=== PATIENT | female | born 1990 | race Caucasian/White ===

== ENCOUNTER 2021-05-15 08:48 | Inpatient (IN) | payer OTHER ==
[~2021-05-15] VITALS: Ht 177.8 cm; Wt 89.4 kg
--- NOTE | 2021-05-17 10:52 | NUR ---
CONNECTED WITH PT AND HERBERT. PT WALKING IN RM-JUST WAITING. BOTH IN GOOD SPIRITS, HAD PRAYER, WILL FOLLOW
--- NOTE | 2021-05-17 18:50 | PR ---
[facility] [address] [facility] [place], [place] [address] Signed Progress Notes IP Datetime Report Generated by CPN: 05/17/2021 18:50 PROGRESS NOTES: [id number] Impression: Reassuring Heart Rate Plan: Continue Present Management VITAL SIGNS: [id number] Vital Signs: Reviewed; Within Normal Limits EXAM: [id number] Dilatation: 1.5 Effacement: 80 Station: -1 Contractions: irregular MEMBRANES: [id number] Membranes Status: Intact Comments: IOL for post-EDC, 41 2/7 weeks gestation -s/p cytotec x 3 -now madie too frequently for additional cytotec and rating contraction pain 08/13 Plan: recheck in 2 hrs, anticipate AROM at that time FETUS A: [id number] FHR Baseline: 130 Variability: Moderate 6-25bpm Accelerations: 15X15 Decelerations: None FHR Category: Category I Presentation: Vertex Comments on Fetus A: No evidence of acidemia FETUS B: [id number] Signing Physician: Cecily Hoff DO Copies: ~ *Electronically Signed* 05/17/21 448 CECILY HOFF DO PATIENT NAME: RADHA HAND PROGRESS NOTE DATE OF : [birth year] PHYSICIAN: CECILY HOFF DO RPT #: [id number] REPORT IS CONFIDENTIAL AND NOT TO BE RELEASED WITHOUT AUTHORIZATION
--- NOTE | 2021-05-17 21:21 | PR ---
[facility] [address] [facility] [place], [place] [address] Signed Progress Notes IP Datetime Report Generated by CPN: 05/17/2021 21:21 PROGRESS NOTES: [id number] Impression: Reassuring Heart Rate Procedures: Artificial ROM Plan: Continue Present Management VITAL SIGNS: [id number] Vital Signs: Reviewed; Within Normal Limits EXAM: [id number] Dilatation: 1.5 Effacement: 90 Station: -1 Contractions: irregular MEMBRANES: [id number] Membranes Status: Intact ROM Note: Dr Ronnie RODRIGUEZ pt agreeable. Comments: @ 41 2/7 weeks gestation -s/p cytotec x 3 -contractions increasing in strength -AROM as noted, recommend position changes as tolerated for suspected OP positioning FETUS A: [id number] FHR Baseline: 130 Variability: Moderate 6-25bpm Accelerations: 15X15 Decelerations: None FHR Category: Category I Presentation: Vertex Comments on Fetus A: No evidence of acidemia FETUS B: [id number] Signing Physician: Cecily Hoff DO Copies: ~ *Electronically Signed* 05/17/212120 CECILY HOFF DO PATIENT NAME: RADHA HAND PROGRESS NOTE DATE OF : [birth year] PHYSICIAN: CECILY HOFF DO RPT #: [id number] REPORT IS CONFIDENTIAL AND NOT TO BE RELEASED WITHOUT AUTHORIZATION
--- NOTE | 2021-05-19 10:30 | PR ---
[facility] [address] [facility] [place], [place] [address] Signed PP Progress Notes Datetime Report Generated by NEENA: 05/19/2021 10:30 SUBJECTIVE: [id number] Pain: Within Normal Limits Nausea/Vomiting: Denies Flatus: Yes Vital Signs: [id number] Vital Signs: Reviewed; Within Normal Limits EXAM: Ongoing Cardiovascular: Normal Respiratory: Normal Abdomen/Uterus: Normal Lochia: Normal Extremities: Normal Progress: Normal Exam Comments: NAD, resting on right side in bed RRR No dyspnea/retractions abd SNTND, FFBU Ext: trace edema, Neg Roscoe's BL IMPRESSION/PLAN/PROCEDURES: [id number] Impression: Normal Progression Plan: Continue Present Management; Discharge Progress Notes: PPD#1 s/p IOL for post-EDC -progressing well postop -ambulating, voiding, tolerating regular diet, + flatus -planning condoms for contraception Anemia -hgb 11.4 on admission, 10.1 PPD#1 -ok to continue oral iron, not mandatory COVID19 in - mild symptoms in April, asymptomatic at this time Signing Physician: Cecily Hoff DO Copies: *Electronically Signed* 05/19/21 1030 CECILY HOFF DO PATIENT NAME: RADHA HAND PROGRESS NOTE DATE OF : 91 PHYSICIAN: CECILY HOFF DO RPT #: [id number] REPORT IS CONFIDENTIAL AND NOT TO BE RELEASED WITHOUT AUTHORIZATION [facility] [address] [place] [address], [place] [address] Signed ~ *Electronically Signed* 05/19/21 1030 CECILY HOFF DO PATIENT NAME: RADHA HAND PROGRESS NOTE DATE OF : 91 PHYSICIAN: CECILY HOFF DO RPT #: [id number] REPORT IS CONFIDENTIAL AND NOT TO BE RELEASED WITHOUT AUTHORIZATION
== END 2021-05-19 11:20 | disposition home or self-care (01) | DRG 807 ==
LOC: FBC 05-17 06:10
PROVIDERS: ADMIT Obstetrics & Gynecology; ATTEND Obstetrics & Gynecology
PROC: 10E0XZZ Delivery of Products of Conception, External Approach (ICD-10-PCS; principal; 2021-05-17)
PROC: 0KQM0ZZ Repair Perineum Muscle, Open Approach (ICD-10-PCS; 2021-05-17)
PROC: 3E0P7VZ Introduction of Hormone into Female Reproductive, Via Natural or Artificial Opening (ICD-10-PCS; 2021-05-17)
PROC: 10907ZC Drainage of Amniotic Fluid, Therapeutic from Products of Conception, Via Natural or Artificial Opening (ICD-10-PCS; 2021-05-17)
PROC: 3E0R3BZ Introduction of Anesthetic Agent into Spinal Canal, Percutaneous Approach (ICD-10-PCS; 2021-05-17)
PROC: 00HU33Z Insertion of Infusion Device into Spinal Canal, Percutaneous Approach (ICD-10-PCS; 2021-05-17)
DX: O99.02 Anemia complicating childbirth (principal); Z37.0 Single live birth; D64.9 Anemia, unspecified; Z3A.41 41 weeks gestation of pregnancy; O70.1 Second degree perineal laceration during delivery; Z86.16 Personal history of COVID-19; Z79.899 Other long term (current) drug therapy; Z91.018 Allergy to other foods
CPT/HCPCS: 01960; 36415; 85027; 86850; 86900; 86901; A9270; J2590; J2795; J3010

== ENCOUNTER 2024-02-29 00:02 | Inpatient (IN) | payer BC ==
[~2024-02-29] VITALS: Ht 175.3 cm; Wt 96.2 kg
[~2024-02-29 00:02] MED LIST: CALCIUM CARBONATE 500 MG CHEW PO PRN; LACTATED RINGER'S 1,000 ML IV SCH; MAGNESIUM HYDROXIDE/AL HYDROX 30 ML CUP PO PRN; miSOPROStoL 25 MCG TAB PV SCH
[2024-02-29] MEDS ORDERED: OXYTOCIN/DEXTROSE 5% 20 UNITS/100 ML BAG IV SCH (00:45)
[2024-02-29 00:55] LABS: HEMATOCRIT 31.3 % (35.0-50.0); HEMOGLOBIN 10.8 g/dL (12.0-18.0); MCH 28.3 (27-36); MCHC 34.3 g/dl (30-36); MCV 82.3 fl (81-99); RBC 3.81 M/ul (4.3-5.7); RDW 13.3 (10.5-15.0)
[2024-02-29 01:24] LABS: AMPHETAMINES, URINE NEGATIVE (NEGATIVE); BARBITURATES, URINE NEGATIVE (NEGATIVE); BENZODIAZEPINE, URINE NEGATIVE (NEGATIVE); BUPRENORPHINE, URINE NEGATIVE (NEGATIVE); COCAINE, URINE NEGATIVE (NEGATIVE); ECSTASY, URINE NEGATIVE (NEGATIVE); FENTANYL, URINE NEGATIVE (NEGATIVE); METHADONE, URINE NEGATIVE (NEGATIVE); OPIATES, URINE NEGATIVE (NEGATIVE); OXYCODONE, URINE NEGATIVE (NEGATIVE); PHENCYCLIDINE, URINE NEGATIVE (NEGATIVE)
[2024-02-29 01:30] LABS: ABO B; ANTIBODY SCREEN NEGATIVE; RH POSITIVE
[2024-02-29 01:45] LABS: CANNABINOID, URINE NEGATIVE (NEGATIVE)
[2024-02-29] MEDS ORDERED: fentaNYL citrate 100 MCG/2 ML VIAL ONE (15:27)
[2024-02-29] MEDS ORDERED: LACTATED RINGER'S 500 ML IV PRN (15:30)
[2024-02-29] MEDS ORDERED: ROPIVACAINE 0.2% 200 ML BAG EPIDURAL SCH (15:30)
[2024-02-29] MEDS ORDERED: ePHEDrine sulfate 5 MG/ML SYRINGE IV PRN (15:30)
[2024-02-29] MEDS ORDERED: LACTATED RINGER'S 2,000 ML IV ONE (15:30)
[2024-02-29] MEDS ORDERED: ePHEDrine KIT FOR FBC IV ONE (17:11)
[2024-02-29] MEDS ORDERED: TRANEXAMIC ACID IN NACL,ISO-OS 0 ML IV ONE (18:28)
[2024-02-29] MEDS ORDERED: OXYTOCIN/0.9 % SODIUM CHLORIDE 500 ML IV ONE (18:31)
[2024-02-29] MEDS ORDERED: METHYLERGONOVINE MALEATE 0.2 MG/ML AMP IM ONE (18:45)
[2024-02-29] MEDS ORDERED: OXYTOCIN/0.9 % SODIUM CHLORIDE 500 ML IV SCH ×2 (18:45→21:30)
[2024-02-29] MEDS ORDERED: BENZOCAINE 60 ML AEROSOL TOP PRN (21:30)
[2024-02-29] MEDS ORDERED: ACETAMINOPHEN 325 MG TAB PO PRN (21:30)
[2024-02-29] MEDS ORDERED: HYDROCORTISONE ACETATE 25 MG SUPP PR PRN (21:30)
[2024-02-29] MEDS ORDERED: IBUPROFEN 600 MG TAB PO PRN (21:30)
[2024-02-29] MEDS ORDERED: WITCH HAZEL/GLYCERIN 1 EA PAD TOP PRN (21:30)
[2024-02-29] MEDS ORDERED: HYDROCODONE/ACETA 5/325 TAB PO PRN (21:30)
[2024-02-29] MEDS ORDERED: MAGNESIUM HYDROXIDE 30 ML UDC PO PRN (21:30)
[2024-02-29] MEDS ORDERED: SENNOSIDES/DOCUSATE 1 EA TAB PO SCH (21:34)
[2024-03-01 06:09] LABS: HEMATOCRIT 31.5 % (35.0-50.0); HEMOGLOBIN 10.7 g/dL (12.0-18.0); MCHC 33.9 g/dl (30-36); MCV 82.6 fl (81-99); RBC 3.81 M/ul (4.3-5.7); RDW 13.9 (10.5-15.0)
== END 2024-03-01 18:55 | disposition home or self-care (01) | DRG 807 ==
LOC: FBC 00:02
PROVIDERS: ADMIT Obstetrics & Gynecology; ATTEND Obstetrics & Gynecology
PROC: 10E0XZZ Delivery of Products of Conception, External Approach (ICD-10-PCS; principal; 2024-02-29)
PROC: 0KQM0ZZ Repair Perineum Muscle, Open Approach (ICD-10-PCS; 2024-02-29)
PROC: 3E0S3BZ Introduction of Anesthetic Agent into Epidural Space, Percutaneous Approach (ICD-10-PCS; 2024-02-29)
PROC: 00HU33Z Insertion of Infusion Device into Spinal Canal, Percutaneous Approach (ICD-10-PCS; 2024-02-29)
DX: O48.0 Post-term pregnancy (principal); Z37.0 Single live birth; Z3A.40 40 weeks gestation of pregnancy; O70.1 Second degree perineal laceration during delivery; Z86.16 Personal history of COVID-19; Z98.890 Other specified postprocedural states; Z91.018 Allergy to other foods; O99.02 Anemia complicating childbirth
CPT/HCPCS: 36415; 80307; 85027; 86850; 86900; 86901; A9270; J2210; J2590; J7121